=== PATIENT | female | born 1995 | race African-American/Black ===

== ENCOUNTER 2017-08-21 17:45 | Emergency (ER) | payer MEDICAID ==
--- NOTE | 2017-08-21 18:24 | ER Document Report ---
ED Medical Screen (RME) - General Chief Complaint: STD Exposure Stated Complaint: STD TESTING Time Seen by Provider: 08/21/17 18:22 Notes: Patient shows me a picture on her phone of her vagina that looks like condylomas. She said she is 4 months . She was tested for gonorrhea, chlamydia and HIV last week with negative results. She said the condylomas started 2 days ago. Pt will be brought back to room with a bed for a pelvic exam. I have greeted and performed a rapid initial assessment of this patient. A comprehensive ED assessment and evaluation of the patient, analysis of test results and completion of the medical decision making process will be conducted by additional ED providers. TRAVEL OUTSIDE OF THE [place] IN LAST 30 DAYS: No - Related Data Allergies/Adverse Reactions: No Known Allergies Allergy (Unverified 08/21/17 17:48) Home Medications: Current Home Medications Vit Calc,Iron,Folic [ Vitamins] 1 tab PO DAILY 08/21/17 [ History] Physical Exam - Vital signs Vitals: Temp Pulse Resp BP Pulse Ox 98.0 F 95 H 14 127/87 H 100 08/21/17 17:55 08/21/17 17:55 08/21/17 17:55 08/21/17 17:55 08/21/17 17:55 Course - Vital Signs Vital signs: Temp Pulse Resp BP Pulse Ox 98.0 F 95 H 14 127/87 H 100 08/21/17 17:55 08/21/17 17:55 08/21/17 17:55 08/21/17 17:55 08/21/17 17:55
--- NOTE | 2017-08-21 18:58 | ER Document Report ---
HPI - HPI Patient complains to provider of: Concern about STD Onset: Other - by 3 days Onset/Duration: Gradual Quality of pain: Achy Pain Level: 1 Context: Patient presents complaining of vaginal irritation for the past 3 days. Patient states she noticed some abnormal skin lesions to her vagina and was concerned about a possible sexually transmitted infection. Patient does state that she was recently tested by her SUPERINTENDENT MAINTENANCE in the office and had negative gonorrhea chlamydia testing. Associated Symptoms: Other - Vaginal lesion Exacerbated by: Denies Relieved by: Denies Similar symptoms previously: No Recently seen / treated by doctor: Yes - ROS ROS below otherwise negative: Yes Systems Reviewed and Negative: Yes All other systems reviewed and negative - GASTROINTESTINAL Gastrointestinal: DENIES: Abdominal Pain, Nausea, Patient vomiting - URINARY Urinary: DENIES: Dysuria - REPRODUCTIVE Reproductive: REPORTS: :, Abnormal bleeding / discharge. DENIES: Postmenopausal - DERM Skin Color: Normal Notes: skin lesion to vagina Past Medical History - General Information source: Patient Last Menstrual Period: 17 wks - Social History Smoking Status: Former Smoker Frequency of alcohol use: None Drug Abuse: None Family History: Reviewed & Not Pertinent Patient has suicidal ideation: No Patient has homicidal ideation: No Pulmonary Medical History: Reports: Hx Asthma Renal/ Medical History: Denies: Hx Peritoneal Dialysis Past Surgical History: Reports: Hx Cardiac Surgery - balloon in 2008 for hole closure Vertical Provider Document - CONSTITUTIONAL Agree With Documented VS: Yes Exam Limitations: No Limitations General Appearance: WD/WN, No Apparent Distress - INFECTION CONTROL TRAVEL OUTSIDE OF THE [place] IN LAST 30 DAYS: No - HEENT HEENT: Atraumatic, Normocephalic - NECK Neck: Normal Inspection, Supple - RESPIRATORY Respiratory: Breath Sounds Normal, No Respiratory Distress O2 Sat by Pulse Oximetry: 100 - CARDIOVASCULAR Cardiovascular: Regular Rate, Regular Rhythm - REPRODUCTIVE Female Genitalia: Abnormal Inspection - Patient with yellow-green thick vaginal discharge, patient with condyloma lesions to inner vaginal wesley and vaginal introitus. negative: CMT, Adnexal Pain-Right, Adnexal Pain-Left - BACK Back: Normal Inspection - MUSCULOSKELETAL/EXTREMETIES Musculoskeletal/Extremeties: MAEW, FROM - NEURO Level of Consciousness: Awake, Alert, Appropriate Motor/Sensory: No Motor Deficit - DERM Integumentary: Warm, Dry Course - Vital Signs Vital signs: Temp Pulse Resp BP Pulse Ox 98.0 F 95 H 14 127/87 H 100 12/07/17 17:55 08/21/17 17:55 08/21/17 17:55 08/21/17 17:55 08/21/17 17:55 - Laboratory Laboratory results interpreted by me: 08/21/17 20:36 Labs- Entire Visit 08/21/17 08/21/17 19:25 19:25 Urine Color YELLOW Urine Appearance CLOUDY Urine pH 5.0 Ur Specific [place] 1.034 Urine Protein 30 H Urine Glucose (UA) NEGATIVE Urine Ketones 80 H Urine Blood SMALL H Urine Nitrite NEGATIVE Urine Bilirubin NEGATIVE Urine Urobilinogen 2.0 H Ur Leukocyte Esterase LARGE H Urine WBC (Auto) 55 Urine RBC (Auto) 15 Urine Bacteria (Auto) TRACE Squamous Epi Cells Auto 17 Urine Mucus (Auto) MANY Urine Ascorbic Acid 20 H Epi Cells (Wet Prep) 3+ EPITHELIALS SEEN Bacteria (Wet Prep) 4+ BACTERIA SEEN Trichomonas (Wet Prep) NO TRICHOMONAS SEEN Vaginal WBC 3+ WBCS SEEN Vaginal RBC RARE RBCS SEEN Vaginal Yeast NO YEAST SEEN Discharge - Discharge Clinical Impression: Bacterial vaginosis, Condyloma acuminata UTI (urinary tract infection) Qualifiers: Urinary tract infection type: site unspecified Hematuria presence: with hematuria Qualified Code(s): N39.0 - Urinary tract infection, site not specified Condition: Stable Disposition: HOME, SELF-CARE Instructions: Cephalexin ([facility]), Metronidazole ([facility]), Urinary Tract Infection ( [facility]), Vaginosis, Bacterial ([facility]) Additional Instructions: Return immediately for any new or worsening symptoms Followup with your primary care provider, call tomorrow to make a followup appointment Follow-up with your underground mine machinery mechanic for further evaluation Urine culture is pending, we will call if you need any different treatment Prescriptions: Cephalexin Monohydrate [Keflex 500 mg Capsule] 500 mg PO Q6H 7 Days capsule Metronidazole [Flagyl 500 mg Tablet] 500 mg PO BID #14 tablet Referrals: YASMEEN BURK MD [Primary Care Provider] - Follow up tomorrow
[2017-08-21 19:58] LABS: APPEARANCE,URINE CLOUDY; BILIRUBIN,URINE NEGATIVE (NEGATIVE); GLUCOSE, URINE NEGATIVE (NEGATIVE); KETONES,URINE 80 mg/dL (NEGATIVE); LEUKOCYTE ESTERASE,URINE LARGE (NEGATIVE); NITRITE,URINE NEGATIVE (NEGATIVE); PROTEIN,URINE 30 mg/dL (NEGATIVE); URINE SPECIFIC GRAVITY 1.034
[2017-08-21] MEDS ORDERED: METRONIDAZOLE 500 MG TABLET PO ONE (20:36)
[2017-08-21] MEDS ORDERED: CEPHALEXIN 500 MG CAPSULE PO ONE (20:36)
[2017-08-21 21:08] VITALS: BP 124/82
== END 2017-08-21 20:56 | disposition home or self-care (01) ==
LOC: ER 17:45
DX: O98.319 Other infections with a predominantly sexual mode of transmission complicating pregnancy, unspecified trimester (principal); A63.0 Anogenital (venereal) warts; O26.899 Other specified pregnancy related conditions, unspecified trimester; O23.599 Infection of other part of genital tract in pregnancy, unspecified trimester; B96.89 Other specified bacterial agents as the cause of diseases classified elsewhere; O23.40 Unspecified infection of urinary tract in pregnancy, unspecified trimester; O99.519 Diseases of the respiratory system complicating pregnancy, unspecified trimester; J45.909 Unspecified asthma, uncomplicated; Z3A.00 Weeks of gestation of pregnancy not specified; Z87.891 Personal history of nicotine dependence
CPT/HCPCS: 99283; 87086; 87210; 81001; 87491; 87591; J3490

== ENCOUNTER 2018-03-31 12:19 | Emergency (ER) | payer MEDICAID ==
[2018-03-31] MEDS ORDERED: ACETAMINOPHEN 325 MG TABLET PO ONE (12:54)
[2018-03-31] MEDS ORDERED: ONDANSETRON 4 MG TAB.RAPDIS PO ONE (12:54)
--- NOTE | 2018-03-31 12:55 | ER Document Report ---
ED Medical Screen (RME) - General Chief Complaint: Abdominal Cramping Stated Complaint: ABDOMINAL PAIN Time Seen by Provider: 03/31/18 12:49 Notes: RAPID MEDICAL EVALUATION DISCLOSURE I have seen this patient as part of a Rapid Medical Evaluation and, if applicable, placed any initially appropriate orders. The patient will be seen and fully evaluated, including a full history and physical exam, by a provider ( in Main ED or Fast Track) when a room becomes available. 22-year-old female approximately 8 weeks gestation (by her estimation and LMP 01/23/2018) here with complaints of lower abdominal cramping nausea vomiting diarrhea ongoing past few days. She has tried Gatorade and clay christ without much relief. No known sick contacts. EXAM No appreciable abdominal TTP TRAVEL OUTSIDE OF THE [place] IN LAST 30 DAYS: No - Related Data Allergies/Adverse Reactions: No Known Allergies Allergy (Verified 03/31/18 12:20) Past Medical History Pulmonary Medical History: Reports: Hx Asthma Renal/ Medical History: Denies: Hx Peritoneal Dialysis Past Surgical History: Reports: Hx Cardiac Surgery - balloon in 2008 for hole closure Physical Exam - Vital signs Vitals: Temp Pulse Resp BP Pulse Ox 97.6 F 78 16 118/81 100 03/31/18 12:29 03/31/18 12:29 03/31/18 12:29 03/31/18 12:29 03/31/18 12:29 Course - Vital Signs Vital signs: Temp Pulse Resp BP Pulse Ox 97.6 F 78 16 118/81 100 03/31/18 12:29 03/31/18 12:29 03/31/18 12:29 03/31/18 12:29 03/31/18 12:29 Doctor's Discharge - Discharge Referrals: YASMEEN BURK MD [Primary Care Provider] - Follow up as needed
[2018-03-31 13:37] LABS: ABSOLUTE BASOPHILS # (AUTO) 0.1 10^3/uL (0.0-0.2); ABSOLUTE EOSINOPHILS # (AUTO) 0.1 10^3/uL (0.0-0.6); ABSOLUTE LYMPHOCYTES (AUTO) 1.9 10^3/uL (0.5-4.7); ABSOLUTE MONOCYTES (AUTO) 0.7 10^3/uL (0.1-1.4); ABSOLUTE NEUT (AUTO) 6.4 10^3/uL (1.7-8.2); HEMATOCRIT 38.3 % (36.0-47.0); HEMOGLOBIN 13.1 g/dL (12.0-15.5); MEAN CORPUSCULAR HEMOGLOBIN 28.4 pg (27.0-33.4); MEAN CORPUSCULAR VOLUME 83 fl (80-97); PLATELET COUNT 241 10^3/uL (150-450)
[2018-03-31 13:42] LABS: APPEARANCE,URINE CLOUDY; BILIRUBIN,URINE SMALL (NEGATIVE); GLUCOSE, URINE NEGATIVE (NEGATIVE); KETONES,URINE TRACE mg/dL (NEGATIVE); LEUKOCYTE ESTERASE,URINE LARGE (NEGATIVE); NITRITE,URINE NEGATIVE (NEGATIVE); PROTEIN,URINE 100 mg/dL (NEGATIVE); URINE SPECIFIC GRAVITY 1.032
[2018-03-31 13:43] LABS: COLOR,URINE YELLOW
[2018-03-31 13:46] LABS: BASOPHILS % (AUTO) 0.8 % (0-2); EOSINOPHILS % (AUTO) 0.6 % (0-6); LYMPHOCYTES % (AUTO) 20.6 % (13-45); MEAN CORPUSCULAR HGB CONC 34.3 g/dL (32.0-36.0); MONOCYTES % (AUTO) 7.2 % (3-13); RED BLOOD COUNT 4.62 10^6/uL (3.72-5.28); RED CELL DISTRIBUTION WIDTH 13.8 % (11.5-14.0); SEGMENTED NEUTROPHILS % (AUTO) 70.8 % (42-78); TOTAL CELLS COUNTED % (AUTO) 100 %
[2018-03-31 14:04] LABS: ALANINE AMINOTRANSFERASE 24 U/L (9-52); ALBUMIN 4.4 g/dL (3.5-5.0); ALKALINE PHOSPHATASE 67 U/L (38-126); ANION GAP 13 (5-19); ASPARTATE AMINO TRANSFERASE 18 U/L (14-36); BILIRUBIN,DIRECT 0.2 mg/dL (0.0-0.4); BILIRUBIN,TOTAL 0.6 mg/dL (0.2-1.3); BLOOD UREA NITROGEN 9 mg/dL (7-20); CALCIUM 9.5 mg/dL (8.4-10.2); CARBON DIOXIDE 24 mmol/L (22-30); CHLORIDE 101 mmol/L (98-107); GLUCOSE 81 mg/dL (75-110); POTASSIUM 3.5 mmol/L (3.6-5.0)
--- NOTE | 2018-03-31 14:57 | RADIOLOGY REPORT (SQ) ---
EXAM DESCRIPTION: U/S OB TRANSVAGINAL W/O DOP COMPLETED DATE/TIME: 03/31/2018 2:47 pm REASON FOR STUDY: lower abd cramping; eval ectopic miscarriage COMPARISON: None. TECHNIQUE: Endovaginal static and realtime grayscale images acquired of the pelvis. Additional selec meliza spectral and color Doppler images recorded. All images stored on PACs. bHCG: Not available CLINICAL DATES: 01/23/2018 last menses LIMITATIONS: None. FINDINGS: FETUS: Living intrauterine . ULTRASOUND EGA: 7 weeks 3 days ULTRASOUND HUBERT: 11/14/2018 CRL: 1.3 cm FHR: 152 beats per minute. SUBCHORIONIC BLEED: Yes SIZE OF BLEED: Moderate size, 2.4 x 0.8 cm. Cervix is closed. UTERUS: No masses. No anomalies. Uterus is 9 x 5 x 5.4 cm in size. CERVICAL LENGTH: 1.7 cm Closed. RIGHT ADNEXA: Normal ovary with normal vascular flow. Right ovary 2.9 x 2.5 x 1.6 cm in size No adnexal free fluid. No adnexal masses. LEFT ADNEXA: Normal ovary with normal vascular flow. Left ovary 2.5 x 1.6 x 1.3 cm in size No adnexal free fluid. No adnexal masses. FREE FLUID: None. OTHER: No other significant finding. IMPRESSION: LIVING INTRAUTERINE . EGA 7 weeks 3 days. Subchorionic hemorrhage identified. Trimester of : First - 0 to 13 weeks. TECHNICAL DOCUMENTATION: JOB ID: [id number] [employer]- All Rights Reserved Reading location - IP/workstation name: [facility]-[email or web address]
--- NOTE | 2018-03-31 15:09 | ER Document Report ---
ED General - General Mode of Arrival: Ambulatory Information source: Patient TRAVEL OUTSIDE OF THE [place] IN LAST 30 DAYS: No <CIRA KNAPP - Last Filed: 03/31/18 23:55> <NATY SURESH - Last Filed: 03/31/18 23:58> - General Chief Complaint: Abdominal Cramping Stated Complaint: ABDOMINAL PAIN Time Seen by Provider: 03/31/18 12:49 Notes: Patient is a 22 year old female, , currently approximately 8 weeks presents to the emergency department complaining of abdominal cramping with associated symptoms of nausea, vomiting and diarrhea onset a few days ago. Patient states she has had constant vomiting and describes her abdominal pain as a diffuse numbness. Patient denies vaginal discharge, vaginal bleeding or sick contacts. She also mentions waking up with her fingertips being blue this morning, this did not bother her although it concerned her father. This has since been resolved and she denies numbness, tingling or weakness. Patient recently gave apporximately 4 months ago. Patient states she delivered 2 months early but denies any other complications. (CIRA KNAPP) - Related Data Allergies/Adverse Reactions: No Known Allergies Allergy (Verified 03/31/18 12:20) Past Medical History - General Information source: Patient - Social History Smoking Status: Former Smoker Family History: Reviewed & Not Pertinent Patient has suicidal ideation: No Patient has homicidal ideation: No Pulmonary Medical History: Reports: Hx Asthma Past Surgical History: Reports: Hx Cardiac Surgery - balloon in 2008 for hole closure <CIRA KNAPP - Last Filed: 03/31/18 23:55> Review of Systems - Review of Systems Constitutional: No symptoms reported EENT: No symptoms reported Cardiovascular: No symptoms reported Respiratory: No symptoms reported Gastrointestinal: See HPI, Abdominal pain, Diarrhea, Nausea, Vomiting Genitourinary: No symptoms reported Female Genitourinary: See HPI, Musculoskeletal: No symptoms reported Skin: See HPI Hematologic/Lymphatic: See HPI Neurological/Psychological: No symptoms reported -: Yes All other systems reviewed and negative <CIRA KNAPP - Last Filed: 03/31/18 23:55> Physical Exam <CIRA KNAPP - Last Filed: 03/31/18 23:55> <NATY SURESH - Last Filed: 03/31/18 23:58> - Vital signs Vitals: Temp Pulse Resp BP Pulse Ox 97.6 F 78 16 118/81 100 03/31/18 12:25 03/31/18 12:25 03/31/18 12:25 03/31/18 12:25 03/31/18 12:25 - Notes Notes: GENERAL: Alert, interacts well. No acute distress. HEAD: Normocephalic, atraumatic. EYES: Pupils equal, round, and reactive to light. Extraocular movements intact. ENT: Oral mucosa moist, tongue midline. NECK: Full range of motion. Supple. Trachea midline. LUNGS: Clear to auscultation bilaterally, no wheezes, rales, or rhonchi. No respiratory distress. HEART: Regular rate and rhythm. No murmurs, gallops, or rubs. ABDOMEN: Soft, non-tender. Uterus not palpable. Non-distended. Bowel sounds present in all 4 quadrants. EXTREMITIES: Moves all 4 extremities spontaneously. NEUROLOGICAL: Alert and oriented x3. Normal speech. PSYCH: Normal affect, normal mood. SKIN: Warm, dry, normal turgor. No rashes or lesions noted. (CIRA KNAPP) Course - Laboratory Result Diagrams: 03/31/18 13:22 03/31/18 13:22 <CIRA KNAPP - Last Filed: 03/31/18 23:55> - Laboratory Result Diagrams: 03/31/18 13:22 03/31/18 13:22 <NATY SURESH - Last Filed: 03/31/18 23:58> - Re-evaluation Re-evalutation: 03/31/18 15:24 CBC unremarkable, CMP only shows slight low potassium at 3.5 otherwise unremarkable, renal function normal, urinalysis shows streaky stones and large leukocyte esterase with 182 WBCs, mild contamination with 16 squamous epithelial cells, this was sent for culture. Quant hCG is pending however the transvaginal ultrasound has already resulted it shows a 7 week 3 day living intrauterine with a heart rate of 152. There is a moderately sized subchorionic bleed however the cervix is closed. There is no free fluid. Patient states she is not having any vaginal bleeding. Patient symptoms are consistent with uterine cramping from the subchorionic hemorrhage as well as irritability from the urinary tract infection. Patient will be hydrated, prescribed Diclegis and Zofran for nausea and Keflex for urinary tract infection. Patient will be discharged home. (NATY SURESH) - Vital Signs Vital signs: Temp Pulse Resp BP Pulse Ox 97.5 F 80 16 122/72 100 03/31/18 16:20 03/31/18 16:20 03/31/18 12:29 03/31/18 16:20 03/31/18 16:20 - Laboratory Laboratory results interpreted by me: 03/31/18 03/31/18 13:22 13:22 Potassium 3.5 L Beta HCG, Quant [id number] H Urine Protein 100 H Urine Ketones TRACE H Urine Bilirubin SMALL H Urine Urobilinogen 4.0 H Ur Leukocyte Esterase LARGE H Discharge <CIRA KNAPP - Last Filed: 03/31/18 23:55> <NATY SURESH - Last Filed: 03/31/18 23:58> - Discharge Clinical Impression: Nausea and vomiting during , Urinary tract infection affecting Subchorionic hemorrhage in first trimester Qualifiers: Fetus number: single or unspecified fetus Qualified Code(s): O41.8X10 - Other specified disorders of amniotic fluid and membranes, first trimester, not applicable or unspecified Condition: Stable Disposition: HOME, SELF-CARE Additional Instructions: You have urinary tract infection. Please take antibiotics as directed until they are gone. Your ultrasound shows that she were 7 weeks and 3 days along. There is a small amount of bleeding around the baby. This is called subchorionic hemorrhage. Please do not have sex until you follow-up with your EXTERNAL RELATIONS DIRECTOR. I have prescribed you Diclegis to help with the nausea and vomiting. You may also take Zofran if the Diclegis does not work. Prescriptions: Doxylamine Succinate/Vit B6 [Diclegis Dr 10-10 mg Tablet] 2 each PO QHS #30 tablet. Ondansetron [Zofran Odt 4 mg Tablet] 1 - 2 tab PO Q4HP PRN #10 tab.rapdis PRN Reason: Cephalexin Monohydrate [Keflex 500 mg Capsule] 500 mg PO Q6H 5 Days capsule Referrals: YASMEEN BURK MD [ACTIVE STAFF] - Follow up in 3-5 days Scribe Attestation: 03/31/18 23:58 I personally performed the services described in the documentation, reviewed and edited the documentation which was dictated to the scribe in my presence, and it accurately records my words and actions. (NATY SURESH) Scribe Documentation - Scribe Written by Adal:: Cira Knapp, 03/31/2018 15:22 acting as scribe for :: Joao <CIRA KNAPP - Last Filed: 03/31/18 23:55>
[2018-03-31] MEDS ORDERED: NORMAL SALINE 1000 ML 1,000 ML IV ONE (15:10)
[2018-03-31] MEDS ORDERED: CEPHALEXIN 500 MG CAPSULE PO ONE (15:11)
[2018-03-31 16:32] VITALS: BP 122/72
== END 2018-03-31 16:31 | disposition home or self-care (01) ==
LOC: ER 12:19
DX: O21.9 Vomiting of pregnancy, unspecified (principal); O23.41 Unspecified infection of urinary tract in pregnancy, first trimester; O41.8X10 Other specified disorders of amniotic fluid and membranes, first trimester, not applicable or unspecified; Z3A.01 Less than 8 weeks gestation of pregnancy
CPT/HCPCS: 99284; 96360; 36415; 87086; 84702; 85025; 80053; 81001; 76817; J3490; S0119; J7030